=== PATIENT | female | born 1950 | race Caucasian/White ===

== ENCOUNTER 2018-12-02 15:07 | Emergency (ER) | payer MEDICARE, OTHER ==
[~2018-12-02] VITALS: Ht 165.1 cm; Wt 61.2 kg
[~2018-12-02 15:07] MED LIST: Anastrozole1 GM PO; CALCA500CH; CITA10S PO; CITA20 PO; Celexa40 MG PO; DIAZ5 PO; LISI5 PO; MIDO5 PO; Neurontin 300300 MG PO; OXYC5 PO; SIMV40 PO; STOOL SOFTENER1 EAC1; TRAM50 PO
[2018-12-02] MEDS ORDERED: Percocet 5-3251 EACH PO (16:34)
[2018-12-05] MEDS ORDERED: TUMS500 MG PO (14:51)
[2018-12-05] MEDS ORDERED: CHOL10002 PO (14:52)
[2018-12-05] MEDS ORDERED: Stool Softener100 MG PO (14:52)
== END 2018-12-02 16:59 | disposition home or self-care (01) ==
LOC: ER 15:07
DX: S59.202A Unspecified physeal fracture of lower end of radius, left arm, initial encounter for closed fracture (principal); F32.9 Major depressive disorder, single episode, unspecified; E78.5 Hyperlipidemia, unspecified; F17.200 Nicotine dependence, unspecified, uncomplicated; Z88.5 Allergy status to narcotic agent; Z91.018 Allergy to other foods; Z88.8 Allergy status to other drugs, medicaments and biological substances; Z85.3 Personal history of malignant neoplasm of breast; W01.0XXA Fall on same level from slipping, tripping and stumbling without subsequent striking against object, initial encounter
CPT/HCPCS: 29125; 73110; 99283-25

== ENCOUNTER 2019-10-01 06:17 | Day surgery (SDC) | payer MEDICARE, OTHER ==
[~2019-10-01] VITALS: Ht 165.1 cm; Wt 68.1 kg
[~2019-10-01 06:17] MED LIST changes: +CHOL10002 PO; +Percocet 5-3251 EACH PO; +Stool Softener100 MG PO; +TUMS500 MG PO; +ZOCOR40 MG PO
--- NOTE | 2019-10-01 07:05 | NUR ---
10/01/19 0705 TAJ CULLEN PT READY FOR PROCEDURE, AT BEDSIDE. ENGAGED IN PRE OP/POST OP TEACHING.
== END 2019-10-01 09:54 | disposition home or self-care (01) ==
LOC: ORSCSDS 06:17
PROVIDERS: Orthopaedic Surgery
PROC: 0PPJ04Z Removal of Internal Fixation Device from Left Radius, Open Approach (ICD-10-PCS; principal; 2019-10-01 07:30)
DX: T84.84XA Pain due to internal orthopedic prosthetic devices, implants and grafts, initial encounter (principal); S52.502A Unspecified fracture of the lower end of left radius, initial encounter for closed fracture; I10 Essential (primary) hypertension; E78.5 Hyperlipidemia, unspecified; J44.9 Chronic obstructive pulmonary disease, unspecified; Z79.899 Other long term (current) drug therapy
CPT/HCPCS: J0690; J1100; J2250; J2405; J2704; J3010; J7120

== ENCOUNTER → 2020-07-30 | Outpatient (CLI) | payer MEDICARE, OTHER ==
[~2020-07-30] MED LIST changes: +ARIMIDEX1 MG PO; -Anastrozole1 GM PO; +FAMO20 PO
[2020-07-31 13:12] LABS: ADENOVIRUS F 40/41 Not Detected (Not Detected); ASTROVIRUS Not Detected (Not Detected); C DIFFICILE TOXIN A/B Not Detected (Not Detected); CAMPYLOBACTER Not Detected (Not Detected); CRYPTOSPORIDIUM Not Detected (Not Detected); CYCLOSPORA CAYETANENSIS Not Detected (Not Detected); ENTAMOEBA HISTOLYTICA Not Detected (Not Detected); ENTEROAGGREGATIVE E COLI Not Detected (Not Detected); ENTEROPATHOGENIC E COLI Not Detected (Not Detected); ENTEROTOXIGENIC E COLI Not Detected (Not Detected); GIARDIA LAMBLIA Not Detected (Not Detected); NOROVIRUS GI/GII Not Detected (Not Detected); PLESIOMONAS SHIGELLOIDES Not Detected (Not Detected); ROTAVIRUS A Not Detected (Not Detected); SALMONELLA Not Detected (Not Detected); SAPOVIRUS Not Detected (Not Detected); SHIGA-TOXIN-PRODUCING E COLI Not Detected (Not Detected); SHIGELLA/ENTEROINVASIVE E COLI Not Detected (Not Detected); VIBRIO Not Detected (Not Detected); VIBRIO CHOLERAE Not Detected (Not Detected); YERSINIA ENTEROCOLITICA Not Detected (Not Detected)
== END | disposition home or self-care (01) ==
LOC: LAB SHORT 09:15 → LAB 09:15 → LAB FUT 07-14 13:00
PROVIDERS: Internal Medicine Gastroenterology
DX: R19.7 Diarrhea, unspecified (principal)
CPT/HCPCS: 0097U

== ENCOUNTER 2020-08-03 09:13 | Day surgery (SDC) | payer MEDICARE, OTHER ==
[~2020-08-03] VITALS: Ht 165.1 cm; Wt 66.1 kg
== END 2020-08-03 11:36 | disposition home or self-care (01) ==
LOC: ORSCSDS 09:13
PROVIDERS: Internal Medicine Gastroenterology
PROC: 0DBE8ZZ Excision of Large Intestine, Via Natural or Artificial Opening Endoscopic (ICD-10-PCS; principal; 2020-08-03 10:30)
PROC: 0DBM8ZX Excision of Descending Colon, Via Natural or Artificial Opening Endoscopic, Diagnostic (ICD-10-PCS; principal; 2020-08-03 10:30)
DX: R19.7 Diarrhea, unspecified (principal); Z86.010 Personal history of colon polyps; K57.30 Diverticulosis of large intestine without perforation or abscess without bleeding; D12.4 Benign neoplasm of descending colon; F41.8 Other specified anxiety disorders; K21.9 Gastro-esophageal reflux disease without esophagitis; I10 Essential (primary) hypertension; E78.5 Hyperlipidemia, unspecified; F17.210 Nicotine dependence, cigarettes, uncomplicated; Z79.899 Other long term (current) drug therapy
CPT/HCPCS: 88305; J2405; J2704; J7120

== ENCOUNTER → 2021-03-25 | Outpatient (CLI) | payer MEDICARE, OTHER | LOC: LAB 10:48 → LAB SHORT 10:48 | DX: D48.5 Neoplasm of uncertain behavior of skin (principal); Z88.8 Allergy status to other drugs, medicaments and biological substances; Z88.5 Allergy status to narcotic agent; Z91.018 Allergy to other foods | CPT/HCPCS: 88305 ==